=== PATIENT | female | born 1980 | race Caucasian/White ===

== ENCOUNTER 2021-02-14 22:14 | Emergency (ER) | payer SELFPAY ==
[2021-02-14] MEDS: LORazepam INJ (*CRX) 2 MG/ML VIAL (22:31)
[2021-02-14 22:39] VITALS: BP 113/63; PULSE 83; RESP 22; TEMP 35.8; O2SAT 99
[2021-02-14] MEDS: KETAMINE HCL (*CRX) 500 MG/10 ML VIAL (23:22)
[2021-02-14 23:23] VITALS: BP 110/64; PULSE 71; RESP 16; O2SAT 98
[2021-02-14 23:32] LABS: Basophils Absolute Auto 0.1 K/mm3 (0.0-0.1); Basophils Percent Auto 0.8 % (0.2-1.2); Eosinophils Absolute Auto 0.4 K/mm3 (0-0.3); Eosinophils Percent Auto 5.8 % (0-4.4); Hematocrit 39.8 % (37.0-47.0); Hemoglobin 12.4 g/dL (12.0-15.0); Immature Granulocyte Absolute 0.02 K/mm3 (0.00-0.031); Immature Granulocyte Percent A 0.3 % (0-0.5); Lymphocytes Absolute Auto 3.34 K/mm3 (0.9-3.2); Lymphocytes Percent Auto 44.8 % (18.3-44.2); Mean Corpuscular HGB Conc 31.2 g/dl (32-36); Mean Corpuscular Hemoglobin 28.7 pg (26-34); Mean Corpuscular Volume 92.1 fl (80-100); Monocytes Absolute Auto 0.6 K/mm3 (0.1-0.6); Monocytes Percent Auto 7.4 % (2.6-8.5); Neutrophils Absolute Auto 3.1 K/mm3 (1.3-6.7); Neutrophils Percent Auto 40.9 % (45.5-73.1); Platelet Count Result 231 k/mm3 (150-375); Red Blood Count 4.32 M/mm3 (4.2-5.4); Red Cell Distribution Width 12.5 % (11.5-14.5); White Blood Count 7.5 K/mm3 (4.5-10.0)
[2021-02-14 23:35] LABS: Add Urine Microscopic? YES; Appearance Urine Clear (Clear); Bilirubin Urine Negative (Negative); Blood Urine Negative (Negative); Color Urine Yellow (Yellow); Glucose Urine UA Negative (Negative); Ketones Urine Negative (Negative); Leukocyte Esterase Ur Trace LEU/UL (Negative); Mucus Urine Rare /lpf; Nitrate Urine Negative (Negative); Protein Urine 1+ mg/dL (Negative); RBC Urine 0-2 /hpf (0-2); Squamous Epithelial Cell Urine Rare /hpf (Few)
[2021-02-14 23:38] LABS: Specific Grav Ur 1.031 (1.001-1.035)
[2021-02-14 23:41] LABS: Alanine Aminotransferase 18 U/L (4-35); Alkaline Phosphatase 80 U/L (38-126); Anion Gap 5 mmol/L (8-16); Aspartate Amino Transferase 25 U/L (14-36); Bilirubin,Total 0.2 mg/dL (0.2-1.3); Blood Urea Nitrogen 10 mg/dL (7-17); Calcium 8.8 mg/dL (8.4-10.2); Carbon Dioxide 28 mmol/L (22-30); Chloride 104 mmol/L (98-107); Estimated CRCL calculation 93 ml/min; Estimated Glomerular Filt Rate > 60; Glucose 86 mg/dL (65-110); Sodium 137 mmol/L (137-145)
[2021-02-14 23:52] LABS: Barbiturate Screen Urine Negative (Negative); Benzodiazepines Screen Urine Negative (Negative)
[2021-02-14 23:53] LABS: Cannabinoid Screen Urine Negative (Negative); Cocaine Screen Urine Negative (Negative); Methadone Screen Urine Positive (Negative); Opiate Screen Urine Negative (Negative); Phencyclidine Screen Urine Negative (Negative)
[2021-02-15] VITALS (11 sets, daily range): BP systolic 94–151; BP diastolic 52–73; PULSE 48–77; RESP 14–18; O2SAT 93–100
[2021-02-15 00:17] LABS: Amphetamine Screen Urine Positive (Negative)
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
--- NOTE | 2021-02-15 09:25 | PC.NURSE ---
[facility] called to see if pt is still in ED. States someone from [facility] will be here in approximately 30 mins to speak with pt.
--- NOTE | 2021-02-15 09:56 | PC.NURSE ---
[facility] personnel at bedside.
[2021-02-15] MEDS: POTASSIUM CHLORIDE 20 MEQ TABLET 40 MEQ PO (10:16)
== END 2021-02-15 11:06 | disposition home or self-care (01) ==
PROVIDERS: Family Medicine; Emergency Provider Emergency Medicine
DX: T50.901A Poisoning by unspecified drugs, medicaments and biological substances, accidental (unintentional), initial encounter (principal)
CPT/HCPCS: 36415; 80053; 80307; 81001; 85025; 96374; 96375; 99284; A9270; J2060

== ENCOUNTER 2021-06-27 15:42 | Emergency (ER) | payer MEDICAID, SELFPAY ==
[2021-06-27 16:00] VITALS: BP 121/70; PULSE 73; RESP 18; TEMP 36.9; O2SAT 98
--- NOTE | 2021-06-27 16:38 | ED.GENADULT ---
HPI - General Adult General Chief complaint: Upper Respiratory Infection Stated complaint: sorethroat History of Present Illness HPI narrative: Patient is a 40-year-old female presents to the urgent care via POV for evaluation of a sore throat that began this morning. Additionally, she reports a generalized headache, lymphadenopathy and exudate on bilateral tonsils. Tylenol provides some relief. Swallowing worsens throat pain. Patient denies known exposure to sick contacts. She is not vaccinated against Covid or influenza. Related Data Allergies Allergy/AdvReac Type Severity Reaction Status Date / Time prochlorperazine Allergy Unknown Verified 06/27/21 16:26 [From Compazine] Review of Systems Review of Systems: Denies fever, chills, sweats, change in appetite, poor p.o. intake, weight loss, dizziness, LOC, severe persistent headaches, sinus problems, ear pain, drooling, difficulty swallowing, hoarseness, abdominal pain, nausea, vomiting, diarrhea, cough, chest pain, shortness of breath, cyanosis, wheezing, myalgias, and fatigue. [facility] Social History Social History Substance use type: unknown Comments I have reviewed and agree with the patient's past medical, surgical, social, and family hx as documented by the RN. There is no relevant family history pertinent to the presenting complaint. Exam Narrative: GENERAL: Well-appearing, well-nourished, and in no acute distress. HEAD: Normocephalic, atraumatic. No sinus tenderness or facial swelling appreciated. EYES: PERRLA and EOMI. No evidence of erythema, swelling, or drainage. ENT: Bilateral external ears and ear canals normal. Bilateral TMs are normal.No TM perforation. Nares clear, no rhinorrhea or epistaxis. Bilateral turbinates without erythema/ swelling. Mucous membranes moist and pink. Uvula is midline without erythema and swelling. Moderate exudate, marked erythema, and moderate swelling noted to bilateral tonsils. Right tonsil is worse than left. No evidence of peritonsillar abscess, drooling, tenting, or trismus. Breath odor and voice normal. NECK: Supple. No nuchal rigidity appreciated. Bilateral submandibular lymphadenopathy appreciated. CHEST: Bilateral lung vasquez are clear to auscultation. No respiratory distress. No evidence of cough or pleuritic cp upon examination. HEART: Regular rate and rhythm. No murmur, gallop, or rub heard. EXTREMITIES: Normal range of motion. No edema. SKIN: Warm, dry, no rash. NEURO: No focal deficits. Alert and oriented x3. Course Vital Signs Vital signs: Vital Signs Temperature 98.5 F 06/27/21 16:00 Pulse Rate 73 06/27/21 16:00 Respiratory Rate 18 06/27/21 16:00 Blood Pressure 121/70 06/27/21 16:00 Pulse Oximetry 98 06/27/21 16:00 Temperature 98.5 F 06/27/21 16:00 Pulse Rate 73 06/27/21 16:00 Respiratory Rate 18 06/27/21 16:00 Blood Pressure 121/70 06/27/21 16:00 Pulse Oximetry 98 06/27/21 16:00 Reviewed Medical Decision Making Differential Diagnosis Differential Diagnosis: Allergic rhinitis, ABRS, acute viral sinusitis, strep pharyngitis, nasopharyngitis, bronchitis, pneumonia, AOM, otitis externa, viral URI, influenza, covid-19 Medical Records Medical records reviewed: Yes I reviewed the external patient's medical records. Vital Signs Vital Signs: Vital Signs Temperature 98.5 F 06/27/21 16:00 Pulse Rate 73 06/27/21 16:00 Respiratory Rate 18 06/27/21 16:00 Blood Pressure 121/70 06/27/21 16:00 Pulse Oximetry 98 06/27/21 16:00 Temperature 98.5 F 06/27/21 16:00 Pulse Rate 73 06/27/21 16:00 Respiratory Rate 18 06/27/21 16:00 Blood Pressure 121/70 06/27/21 16:00 Pulse Oximetry 98 06/27/21 16:00 Lab Data Lab results reviewed: Yes I reviewed the patient's lab results. Labs: Strep Screen Positive Group A Strep *(Referenc
== END 2021-06-27 16:42 | disposition home or self-care (01) ==
PROVIDERS: Emergency Provider Nurse Practitioner Family
DX: J02.0 Streptococcal pharyngitis (principal)
CPT/HCPCS: 87880; 99213; G0463

== ENCOUNTER 2022-04-06 18:33 | Emergency (ER) | payer SELFPAY ==
[2022-04-06 18:45] VITALS: BP 122/69; PULSE 71; RESP 18; TEMP 36.9; O2SAT 100
--- NOTE | 2022-04-06 18:47 | ED.DENTAL ---
HPI - Dental/Oral General Chief complaint: Dental/Oral Stated complaint: Tooth Pain Lt Side Source: patient Mode of arrival: ambulatory Limitations: no limitations History of Present Illness HPI Narrative: This is a 41 year old female that comes in tearful due to she has a tooth that is fractured from 6 months ago . 3 Days ago her tooth started hurting she has taken Tylenol and Ibuprofen are not working anymore per patient. Patient has not been to the dentist we will give her a list to call on friday . Related Data Allergies Allergy/AdvReac Type Severity Reaction Status Date / Time prochlorperazine AdvReac Severe Hallucinati Verified 04/06/22 18:40 [From Compazine] ng Review of Systems Review of Systems: dental pain swollen jaw All systems reviewed & are unremarkable except as noted in HPI and below [facility] Social History Social History Substance use type: unknown Comments At time as signature, I have reviewed and agree with nursing past medical, social, surgical and family history. Please see nursing chart for further information. There is no relevant family history pertinent to the presenting complaint. Exam Narrative: Neuro: Alert and orientated ent lower left third tooth fractured with dental cavity and swollen gum line noted RESP Ease of rise and fall of chest wall extremity ROM WNL card Regular rate Course Course Emergency Course: 3rd tooth on left lower jaw line Level of Care: Express Care Visit Vital Signs Vital signs: Vital Signs Temperature 98.5 F 04/06/22 18:45 Pulse Rate 71 04/06/22 18:45 Respiratory Rate 18 04/06/22 18:45 Blood Pressure 122/69 04/06/22 18:45 Pulse Oximetry 100 04/06/22 18:45 Oxygen Delivery Room Air 04/06/22 18:45 Temperature 98.5 F 04/06/22 18:45 Pulse Rate 71 04/06/22 18:45 Respiratory Rate 18 04/06/22 18:45 Blood Pressure 122/69 04/06/22 18:45 Pulse Oximetry 100 04/06/22 18:45 Oxygen Delivery Room Air 04/06/22 18:45 MDM - Dental/Oral Differential Diagnosis Differential diagnosis: Likely gingival abscess, dental caries, toothache, dental abscess and fracture of tooth Discharge Plan Discharge Clinical Impression: Toothache, Dental caries, Dental abscess Patient Disposition: Home, Self-Care Condition: Stable Instructions: Antibiotic Form, Cavity Preventive (For the teeth or gums), Dental Abscess (ED), Toothache (ED) Additional Instructions: Gargle warm salt water Prescriptions: New amoxicillin 500 mg capsule 500 mg PO Q12H Qty: 20 0RF ibuprofen 800 mg tablet 800 mg PO TID PRN (Reason: pain) Qty: 20 0RF prednisone 20 mg tablet 20 mg PO BID Qty: 4 0RF Follow-up/Referrals: PHYSICIAN,LEGAL WRITING PROFESSOR [Primary Care Provider] - Stand Alone Forms: Work/School Release IP Time of Disposition: 19:05
[2022-04-06] MEDS: predniSONE 20 MG TABLET 40 MG PO (19:01)
== END 2022-04-06 19:08 | disposition home or self-care (01) ==
PROVIDERS: Emergency Provider Nurse Practitioner Family
DX: K02.9 Dental caries, unspecified (principal); K04.7 Periapical abscess without sinus
CPT/HCPCS: 99213; G0463; J7512